=== PATIENT | female | born 1995 | race Two or more races ===

== ENCOUNTER 2018-06-09 15:18 | Emergency (ER) | payer SELFPAY ==
[~2018-06-09] VITALS: Ht 149.9 cm; Wt 65.7 kg
[2018-06-09 15:22] VITALS: BP 102/73
[2018-06-09] MEDS ORDERED: SODIUM CHLORIDE FLUSH 10ML SYR IVF ONE (15:30)
[2018-06-09 15:47] LABS: MEAN CORPUSCULAR HEMOGLOBIN 27.8 pg (27.0-34.8); MEAN CORPUSCULAR HGB CONC 33.1 g/dL (32.4-35.8); MEAN CORPUSCULAR VOLUME 84.1 fL (80-100); MEAN PLATELET VOLUME 9.1 fL (7.4-10.4); PLATELET COUNT 312 x10^3/uL (130-400); RED BLOOD COUNT 4.48 x10^6/uL (3.82-5.3); RED CELL DISTRIBUTION WIDTH 13.4 % (9.6-15.2)
[2018-06-09 15:53] LABS: MD YES
--- NOTE | 2018-06-09 15:54 | NUR ---
PT TRANSFERED TO L&D
--- NOTE | 2018-06-09 15:55 | NUR ---
PT PLACED IN ROOM 16 DR VILLASENOR TO THE BS FOR ASSESMENT RE ABD PAIN REPORTED BY THE PT VS PREG HE REQUESTED THE PT BE TAKEN TO L&D UNABLE TO COMPLETE PHYSICAL ASSESMENT OR CLINICAL SCREENING PRIOR TO ERP EXAM PT TAKEN TO L&D DID NOT DELIVER PRIOR TO GETTING TO L&D
[2018-06-09 15:56] LABS: ANION GAP 13 mmol/L (5-15); CALCIUM 8.6 mg/dL (8.5-10.1); CHLORIDE 105 mmol/L (98-107)
[2018-06-09 16:16] LABS: ALANINE AMINOTRANSFERASE 20 U/L (12-78); ALKALINE PHOSPHATASE 189 U/L (45-117); BILIRUBIN,TOTAL 0.6 mg/dL (0.2-1.0); CREATININE 0.67 mg/dL (0.55-1.02); TOTAL PROTEIN 7.3 g/dL (6.4-8.2)
[2018-06-09 16:37] LABS: <PLATELET ESTIMATE> ADEQUATE; <RBC MORPHOLOGY> NORMAL; BAND#(MANUAL) 0.29 x10^3/uL; BANDS%(MANUAL) 2 % (0-7); BASOS#(MANUAL) 0.14 x10^3/uL (0-0.1); BASOS% (MANUAL) 1 % (0-1); LYMPH#(MANUAL) 0.72 x10^3/uL (1-3.4); LYMPHS% (MANUAL) 5 % (22-44); MONOS#(MANUAL) 0.29 x10^3/uL (0.3-2.7); MONOS% (MANUAL) 2 % (2-9); SEG#(MANUAL) 12.96 x10^3/uL (1.8-6.8); SEGS% (MANUAL) 90 % (42-75)
[2018-06-09 16:38] LABS: <PLT MORPHOLOGY> NORMAL PLT MORPH
== END 2018-06-09 16:05 | disposition other institution (70) ==
LOC: ED 15:59
DX: O26.893 Other specified pregnancy related conditions, third trimester (principal); R10.84 Generalized abdominal pain; Z3A.29 29 weeks gestation of pregnancy
CPT/HCPCS: 36415; 80053; 83690; 84703; 85025; 99284

== ENCOUNTER 2018-06-09 15:50 | Inpatient (IN) | payer OTHER ==
[~2018-06-09] VITALS: Ht 149.9 cm; Wt 65.0 kg
[2018-06-09] MEDS ORDERED: D5%-LACTATED RINGERS 1,000 ML IV SCH (15:58)
[2018-06-09] MEDS ORDERED: OXYTOCIN 30U/ 0.9% NaCL 500ML 500 ML IV ONE (15:58)
[2018-06-09] MEDS ORDERED: FENTANYL PF 100 MCG/2ML IVPush PRN (16:00)
[2018-06-09] MEDS ORDERED: ONDANSETRON 2MG/ML, 2ML IVPush PRN (16:00)
[2018-06-09] MEDS ORDERED: SODIUM CITRATE/CITRIC ACID 15 ML UDC PO PRN (16:00)
[2018-06-09 16:01] VITALS: BP 127/60
[2018-06-09] MEDS ORDERED: MISOPROSTOL 200 MCG TABLET ONE (16:06)
[2018-06-09] MEDS ORDERED: NEWBORN KIT ONE (16:06)
[2018-06-09] MEDS ORDERED: LIDOCAINE 1%-EPI 1:100K, 20ML ONE (16:07)
[2018-06-09] MEDS ORDERED: OXYTOCIN 30U/ 0.9% NaCL 500ML 500 ML ONE ×2 (16:07→22:22)
[2018-06-09] MEDS ORDERED: FENTANYL/BUPIV./NS/PF 250 ML EPIDCONT ONE ×2 (16:20→16:33)
[2018-06-09] MEDS ORDERED: LIDOCAINE/PF 1.5%-EPI 1:200K, 30ML ONE ×2 (16:31→16:33)
[2018-06-09] MEDS: LACTATED RINGERS 1,000 ML IV SCH ×2 (16:38→20:30)
[2018-06-09] MEDS ORDERED: FENTANYL/BUPIV./NS/PF 250 ML EPIDCONT SCH (16:57)
[2018-06-09] MEDS ORDERED: LACTATED RINGERS 1,000 ML IV SCH (16:57)
[2018-06-09] MEDS ORDERED: LACTATED RINGERS 1,000 ML IVBOLUS PRN (17:00)
[2018-06-09] MEDS ORDERED: NALOXONE 0.4 MG/ML, 1ML IVPush PRN (17:00)
[2018-06-09] MEDS ORDERED: EPHEDRINE 50 MG/ML, 1ML IVPush PRN (17:00)
[2018-06-09 17:40] LABS: AMPHETAMINE SCREEN, URINE Negative (Negative); BARBITURATE SCREEN, URINE Negative (Negative); BENZODIAZEPINE SCREEN, URINE Negative (Negative); CANNABINOID SCREEN, URINE Negative (Negative); COCAINE SCREEN, URINE Negative (Negative); METHADONE SCREEN, URINE Negative (Negative); OPIATE SCREEN, URINE Negative (Negative)
[2018-06-09 17:41] LABS: MICROSCOPIC INDICATED
[2018-06-09 17:44] LABS: CULTURE INDICATED? NO
[2018-06-09] MEDS ORDERED: DIPH,PERTUSS(ACELL),TET VAC/PF NC IM-VACC ONE ×2 (17:55→18:00)
[2018-06-09] MEDS ORDERED: OXYTOCIN 30U/ 0.9% NaCL 500ML 500 ML IV SCH ×2 (21:33)
[2018-06-09] MEDS ORDERED: ONDANSETRON 2MG/ML, 2ML IV PRN (22:00)
[2018-06-09] MEDS ORDERED: DIPH,PERTUSS(ACELL),TET VAC/PF NC IM-VACC PRN (22:00)
[2018-06-09] MEDS ORDERED: MISOPROSTOL 200 MCG TABLET PR PRN (22:00)
[2018-06-09] MEDS ORDERED: DOCUSATE 100 MG CAPSULE PO PRN (22:00)
[2018-06-09] MEDS ORDERED: OXYcodone IR 5MG TABLET PO PRN ×2 (22:00)
[2018-06-09] MEDS ORDERED: ACETAMINOPHEN 325 MG TABLET PO PRN (22:00)
[2018-06-09] MEDS ORDERED: IBUPROFEN 600 MG TABLET ONE (22:22)
[2018-06-09] MEDS: IBUPROFEN 600 MG TABLET PO PRN (22:23)
[2018-06-09] MEDS: OXYTOCIN 30U/ 0.9% NaCL 500ML 500 ML IV SCH (22:23)
[2018-06-09 23:20] VITALS: BP 100/63
[2018-06-10 01:07] VITALS: BP 106/67
[2018-06-10 04:00] VITALS: BP 94/56
[2018-06-10 06:19] LABS: BASOPHILS # (AUTO) 0.02 x10^3/uL (0-0.1); BASOPHILS % (AUTO) 0 % (0-1); EOSINOPHILS # (AUTO) 0.01 x10^3/uL (0-0.4); EOSINOPHILS % (AUTO) 0 % (1-7); LYMPHOCYTES # (AUTO) 1.54 x10^3/uL (1-3.4); LYMPHOCYTES % (AUTO) 11 % (22-44); MD NO; MEAN CORPUSCULAR HEMOGLOBIN 28.3 pg (27.0-34.8); MEAN CORPUSCULAR HGB CONC 33.5 g/dL (32.4-35.8); MEAN CORPUSCULAR VOLUME 84.4 fL (80-100); MEAN PLATELET VOLUME 9.5 fL (7.4-10.4); MONOCYTES # (AUTO) 0.72 x10^3/uL (0.2-0.8); MONOCYTES % (AUTO) 5 % (2-9); NEUTROPHILS # (AUTO) 11.74 x10^3/uL (1.8-6.8); NEUTROPHILS % (AUTO) 84 % (42-75); PLATELET COUNT 216 x10^3/uL (130-400); RED BLOOD COUNT 3.32 x10^6/uL (3.82-5.3); RED CELL DISTRIBUTION WIDTH 13.8 % (9.6-15.2)
[2018-06-10 07:32] VITALS: BP 113/75
[2018-06-10] MEDS: OXYTOCIN 30U/ 0.9% NaCL 500ML 500 ML IV SCH ×2 (07:33→17:33)
[2018-06-10] MEDS: PRENATAL VIT/IRON/FA 1 EACH TABLET PO SCH ×2 (07:56→07:57)
[2018-06-10 12:15] VITALS: BP 103/71
[2018-06-10 16:07] VITALS: BP 112/75
[2018-06-10] MEDS: IBUPROFEN 600 MG TABLET PO PRN (20:45)
[2018-06-10 20:50] VITALS: BP 110/75
[2018-06-11] MEDS: OXYTOCIN 30U/ 0.9% NaCL 500ML 500 ML IV SCH ×2 (01:50→13:33)
[2018-06-11 07:05] VITALS: BP 110/73
[2018-06-11] MEDS: PRENATAL VIT/IRON/FA 1 EACH TABLET PO SCH ×2 (09:00)
[2018-06-11] MEDS ORDERED: FERR-4 PO (10:20)
[2018-06-11] MEDS ORDERED: IBUP-1222 PO (10:20)
[2018-06-11] MEDS ORDERED: PREN1TAB60 PO (10:21)
== END 2018-06-11 17:29 | disposition home or self-care (01) | DRG 807 ==
LOC: LDIP 15:50 → 2NW 23:16
PROVIDERS: ADMIT Obstetrics & Gynecology; ATTEND Obstetrics & Gynecology
PROC: 10E0XZZ Delivery of Products of Conception, External Approach (ICD-10-PCS; principal; 2018-06-09)
PROC: 3E0R3BZ Introduction of Anesthetic Agent into Spinal Canal, Percutaneous Approach (ICD-10-PCS; 2018-06-09)
PROC: 00HU33Z Insertion of Infusion Device into Spinal Canal, Percutaneous Approach (ICD-10-PCS; 2018-06-09)
PROC: 0T9B70Z Drainage of Bladder with Drainage Device, Via Natural or Artificial Opening (ICD-10-PCS; 2018-06-09)
DX: O69.81X0 Labor and delivery complicated by cord around neck, without compression, not applicable or unspecified (principal); Z37.0 Single live birth; Z3A.37 37 weeks gestation of pregnancy
CPT/HCPCS: 36415; 80307; 81001; 85025; 86592; 86762; 86803; 86850; 86900; 87340; 87806; 90715; G0378; J3490; G0475; J2590; J3010; J7120